=== PATIENT | male | born 1965 | race Caucasian/White ===

== ENCOUNTER 2018-01-18 09:38 | Day surgery (SDC) | payer OTHER ==
[2018-01-08 13:04] VITALS: BMI 26.4
[2018-01-18] MEDS ORDERED: PROPOFOL 20 ML ONE ×2 (10:11)
[2018-01-18] MEDS ORDERED: LIDOCAINE HCL/PF 2% SDV 5ML VIAL ONE (10:13)
[2018-01-18 12:49] VITALS: BP 128/68; PULSE 60; TEMP 98.1
--- NOTE | 2018-01-19 11:34 | PATH ---
Surgical Pathology Report Patient Name: CASSIE RAMOS [facility]. Rec. #: [id number] /Age/Gender: 1965 (Age: 52) / M Account: [id number] Location: [place] [facility] Taken: 01/18/2018 Received: 01/18/2018 Reported: 01/19/2018 Physicians: Daniel Mares M.D. Specimen(s) Received A: RIGHT COLON B: 25 CM Clinical History Rule out colon cancer Postoperative diagnosis: Polyps Final Diagnosis A. RIGHT COLON, POLYP, POLYPECTOMY: HYPERPLASTIC POLYP, FRAGMENTS. B. 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 Electronically Signed Mark Sandoval M.D. Gross Description A. Received in formalin, labeled "right colon" are 4 hall, irregular portions of soft tissue ranging from 0.4-1.1 cm. in greatest dimension. The specimens are submitted in toto in one cassette. B. Received in formalin labeled "25 cm," is a 1.5 x 1.0 x 0.6 cm hall, polypoid portion of soft tissue. The base is inked blue and the specimen is bisected. The specimen is entirely submitted in one cassette. 01/18/2018 saudi01/18/2018
== END 2018-01-18 12:53 | disposition home or self-care (01) ==
LOC: FASU-ENDO 09:38
PROVIDERS: ATTEND Internal Medicine Gastroenterology
PROC: 0DBK8ZZ Excision of Ascending Colon, Via Natural or Artificial Opening Endoscopic (ICD-10-PCS; principal; 2018-01-18 11:07)
DX: D12.2 Benign neoplasm of ascending colon (principal)
CPT/HCPCS: 88305-TC

== ENCOUNTER 2021-10-14 09:16 | Day surgery (SDC) | payer OTHER ==
[2021-09-12 13:53] VITALS: BMI 27.1
[2021-10-14 11:46] VITALS: TEMP 97.9
[2021-10-14 12:14] VITALS: BP 123/73; PULSE 65
== END 2021-10-14 12:10 | disposition home or self-care (01) ==
LOC: FASU-ENDO 09:16
PROVIDERS: ATTEND Internal Medicine Gastroenterology
PROC: 0DJD8ZZ Inspection of Lower Intestinal Tract, Via Natural or Artificial Opening Endoscopic (ICD-10-PCS; principal; 2021-10-14 11:09)
DX: Z12.11 Encounter for screening for malignant neoplasm of colon (principal); Z86.010 Personal history of colon polyps

== ENCOUNTER 2023-05-07 14:47 | Observation (INO) | payer OTHER ==
[2023-05-07 15:36] VITALS: BMI 26.7
[2023-05-07 16:21] LABS: HEMATOCRIT 42.7 % (35.4-49); HEMOGLOBIN 14.3 G/dL (11.7-16.9); MCH 29.7 pg (25.7-33.7); MCHC 33.6 g/dl (32.0-35.9); MEAN CELL VOLUME 88.5 fl (80-96); MEAN PLT VOLUME 7.9 fl (7.5-11.1); PLATELET COUNT 272.6 10^3/uL (134-434); RBC 4.83 10^6/uL (4.00-5.60); RDW 14.4 % (11.9-15.9); WHITE BLOOD COUNT 6.4 10^3/uL (4.0-10.8)
[2023-05-07 16:24] LABS: ALBUMIN 4.2 g/dl (3.4-5.0); BILIRUBIN,TOTAL 0.6 mg/dl (0.2-1); CALCIUM 9.3 mg/dl (8.5-10.1); CREATININE 1.1 mg/dl (0.6-1.3); MAGNESIUM 2.3 mg/dL (1.8-2.4); POTASSIUM 4.5 mmol/L (3.5-5.1)
[2023-05-07 16:54] LABS: PLATELET ESTIMATE ADEQUATE
[2023-05-08 03:31] VITALS: RESP 18
[2023-05-08 07:02] LABS: HEMATOCRIT 41.8 % (35.4-49); HEMOGLOBIN 13.8 GM/dL (11.7-16.9); MCH 29.3 pg (25.7-33.7); MCHC 32.9 g/dl (32.0-35.9); MEAN PLT VOLUME 7.6 fl (7.5-11.1); PLATELET COUNT 294 10^3/uL (134-434); RDW 13.4 % (11.9-15.9); WHITE BLOOD COUNT 7.4 K/mm3 (4.0-10.0)
[2023-05-08 07:13] LABS: INR 1.11 (0.83-1.09); POTASSIUM 4.7 mmol/L (3.5-5.1); PROTHROMBIN TIME (PATIENT) 12.9 SEC (9.7-13.0)
[2023-05-08 07:17] LABS: CALCIUM 9.4 mg/dL (8.5-10.1); MAGNESIUM 2.3 mg/dL (1.8-2.4)
[2023-05-08 07:18] LABS: BLOOD UREA NITROGEN 17.9 mg/dL (7-18)
[2023-05-08 07:21] LABS: CREATININE 1.2 mg/dL (0.55-1.3); PHOSPHOROUS 4.4 mg/dL (2.5-4.9)
[2023-05-08] MEDS ORDERED: metoPROLOL SUCCINATE 25 MG TAB.SR.24H (FP) PO SCH (10:00)
[2023-05-08] MEDS ORDERED: ASPIRIN COATED 81 MG TABLET.EC PO SCH (10:00)
[2023-05-08] MEDS ORDERED: FLU VACCINE (FLULAVAL) PF 60 MCG/0.5 ML SYRINGE 2023-2024 IM ONE (10:00)
[2023-05-08 13:36] VITALS: BP 121/68; PULSE 96; TEMP 98.2
== END 2023-05-08 17:04 | disposition home or self-care (01) ==
LOC: FER 14:47 → J4W 23:30 → FER 23:30 → UNDOADMOB 05-08 00:42 → INTOOBSV 05-08 00:42 → J4W 05-08 00:42
PROVIDERS: ADMIT Internal Medicine; ATTEND Internal Medicine
DX: I48.91 Unspecified atrial fibrillation (principal); R00.2 Palpitations; Z86.16 Personal history of COVID-19; R00.0 Tachycardia, unspecified; Z87.891 Personal history of nicotine dependence; Z88.0 Allergy status to penicillin; Z91.018 Allergy to other foods
CPT/HCPCS: 0241U-QW; 36415; 71046-TC-FY; 80048; 80053; 83735; 84100; 84443; 84484; 85027; 85610; 93005; 93306-TC; 99285-25; G0378